=== PATIENT | female | born 1970 | race Two or more races ===

== ENCOUNTER 2019-03-11 10:51 | Emergency (ER) | payer OTHER ==
[~2019-03-11] VITALS: Ht 157.5 cm; Wt 78.0 kg
[~2019-03-11 10:51] MED LIST: BISA5ECT2 PO; FERR-13 PO; GABA300C PO; HYDR25CA1 PO; LITH8SOL PO; LORA-476 PO; MIRABULK PO; OLAN10TA PO
[2019-03-11 10:55] VITALS: BP 145/90
--- NOTE | 2019-03-11 11:26 | NUR ---
PT COMPLAINT UNCLEAR, PT HAVING RAPID THOUGHTS AND DISORGANIZED SPEECH. 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 PT UNABLE TO REPORT ACCURATE SYMPTOMS AND HISTORY. HX: SCHIZOAFFECTIVE DISORDER RX: UNKNOWN
--- NOTE | 2019-03-11 12:36 | NUR ---
EKG performed at bedside by CHASIDY Domínguez. Physician given copy of EKG for review.
--- NOTE | 2019-03-11 12:43 | NUR ---
X-Ray at bedside.
--- NOTE | 2019-03-11 12:46 | NUR ---
LAB AT BEDSIDE.
[2019-03-11 13:02] LABS: BASOPHILS # (AUTO) 0.1 K/uL (0.00-0.22); BASOPHILS % (AUTO) 0.8 % (0.0-2.0); EOSINOPHILS # (AUTO) 0.3 K/uL (0-0.4); EOSINOPHILS % (AUTO) 2.5 % (0.0-4.0); HEMATOCRIT 38.3 % (36-48); HEMOGLOBIN 12.6 g/dL (12.0-16.0); LYMPHOCYTES # (AUTO) 3.1 K/uL (2.5-16.5); LYMPHOCYTES % (AUTO) 30.5 % (20.5-51.1); MEAN CORPUSCULAR HEMOGLOBIN 27 pg (27-31); MEAN CORPUSCULAR HGB CONC 33 g/dL (33-37); MEAN CORPUSCULAR VOLUME 83.1 fL (80-94); MONOCYTES # (AUTO) 0.7 K/uL (0.8-1.0); MONOCYTES % (AUTO) 7.4 % (1.7-9.3); NEUTROPHILS # (AUTO) 5.9 K/uL (1.8-7.7); NEUTROPHILS % (AUTO) 58.8 % (42.2-75.2); PLATELET COUNT (AUTO) 314 K/uL (140-450); RED BLOOD CELL COUNT(AUTO) 4.61 MIL/uL (4.20-5.40); RED CELL DISTRIBUTION WIDTH 14.6 % (11.6-13.7); WHITE BLOOD COUNT (AUTO) 10.1 K/uL (4.8-10.8)
[2019-03-11 13:05] LABS: APPEARANCE,URINE CLEAR (CLEAR); BILIRUBIN,URINE NEGATIVE (NEGATIVE); BLOOD, URINE NEGATIVE (NEGATIVE); COLOR,URINE YELLOW (YELLOW); LEUKOCYTE ESTERASE ,URINE NEGATIVE (NEGATIVE); NITRITE, URINE NEGATIVE (NEGATIVE); UGLUCOSE NEGATIVE (NEGATIVE)
[2019-03-11 13:08] LABS: ANION GAP 13.1 (8-16); CARBON DIOXIDE 24.5 mmol/L (21-32); CREATININE 0.7 mg/dL (0.6-1.3); POTASSIUM 3.6 mmol/L (3.5-5.1)
[2019-03-11 13:14] LABS: ALBUMIN 3.3 g/dL (3.4-5.0); TOTAL BILIRUBIN 0.2 mg/dL (0.0-1.0)
[2019-03-11 13:18] LABS: RBC,URINE 0-5 /HPF (0-5); WBC,URINE 0-5 /HPF (0-5)
--- NOTE | 2019-03-11 15:05 | NUR ---
Dr. Perez at bedside.
--- NOTE | 2019-03-11 15:12 | NUR ---
tele psych consult ordered. spoked with Dr. Helm;provided information about pt's medical condition.
--- NOTE | 2019-03-11 15:45 | NUR ---
Evelyne fitch in ED - 03/11/19 at 1601 by MED PT VERBALIZED GALDINO SANCHEZ. 1 TO 1 SITTER IS AT BEDSIDE.
--- NOTE | 2019-03-11 15:45 | NUR ---
PT VERBALIZED HAVING SUISIDAL IDEATION AND HARM OTHER PEOPLE. 1 TO 1 SITTER IS AT BEDSIDE.
--- NOTE | 2019-03-11 15:55 | NUR ---
PT MOVED TO BED 5; REPORT GIVEN TO REINALDO MEJIA. TRANSFER OF CARE AT THIS TIME. PT IN STABLE CONDITION.
--- NOTE | 2019-03-11 15:55 | NUR ---
RECEIVED REPORT FROM REINALDO SCHWARZ.
--- NOTE | 2019-03-11 17:02 | NUR ---
[place] [facility] IS AT BEDSIDE. PT IS ON 5150 HOLD. 1 TO 1 SITTER IS AT BEDSIDE.
--- NOTE | 2019-03-11 17:27 | NUR ---
PRE ER MD DR MIR PT IS MEDICALLY CLEAR. OK FOR PLACEMENT.
[2019-03-11 17:31] LABS: BARBITURATE, URINE NEG. ng/ml (NEG <=200); BENZODIAZEPINE, URINE NEG. ng/mL (NEG <=200); CANNABINOID, URINE NEG. ng/mL (NEG <=50); COCAINE, URINE NEG. ng/mL (NEG <=300); OPIATE, URINE NEG. ng/mL (NEG <=2000); PHENCYCLIDINE SCREEN,URINE NEG. ng/mL (NEG <=25)
[2019-03-11 17:32] LABS: ACETAMINOPHEN < 0.5 ug/ml (10-30); SALICYLATE 5.8 mg/dL (2.8-20.0)
--- NOTE | 2019-03-11 17:54 | NUR ---
Received packet for placement. S/W Emilie from ER and states patient us medically cleared. [facility] s/w Shantell no beds but packet fax for wait list [facility] s/w Abebe no beds but packet fax for wait list [facility] s/w Flores no beds at this time [facility] s/w Nona only adolescent beds available [facility] s/w Monie, packet fax for review [facility] s/w Harriet, packet fax for possible review [facility] s/w Az no beds at this time
--- NOTE | 2019-03-11 18:34 | NUR ---
PT IS SLEEPING IN BED AT THIS TIME. 1 TO 1 SITTER IS AT BEDSIDE.
--- NOTE | 2019-03-11 20:00 | NUR ---
PT IS EATING AT THIS TIME.
--- NOTE | 2019-03-11 20:20 | NUR ---
CAMI FROM [facility] CALLED AND AKED PT'S VITALS, TEST RESULTS, TREATMENT, PLAN. REPORT GIVEN TO CAMI VIA PHONE.
[2019-03-11] MEDS ORDERED: ACETAMINOPHEN EXTRA STRENGTH 500 MG TAB PO ONE (20:30)
[2019-03-11] MEDS ORDERED: KETOROLAC 30 MG/ML VIAL IM ONE (21:05)
--- NOTE | 2019-03-11 21:15 | NUR ---
REPORT GIVEN TO THE RN OF [facility] VIA PHONE, PHONE NUMBER: [phone]. DR. PATEL.
[2019-03-11 21:31] VITALS: BP 129/81
--- NOTE | 2019-03-11 21:36 | NUR ---
Patient to be transferred to [facility]. Is being transferred due to SUICIAL IDEATION. Receiving facility has accepting physician and available space. ER physician has signed transfer form. Patient or responsible democrat has agreed to transfer and signed form. Patient belongings inventoried and will be sent with patient. Copy of nursing notes, lab reports, EKG, Physicians Orders and X-rays to be sent with patient. Report called to RN OF DR. PATEL, [phone] at receiving facility. [facility] ambulance service has been called for transfer. ETA is 22:15.
[2019-03-12 08:19] LABS: HEPATITIS A ANTIBODY IGM Negative (Negative); HEPATITIS B CORE AB TOTAL Negative (Negative); HEPATITIS B SURFACE ANTIBODY Non Reactive (.); HEPATITIS B SURFACE ANTIGEN Negative (Negative)
== END 2019-03-11 21:36 ==
LOC: MED 10:51
DX: R45.851 Suicidal ideations (principal); R60.9 Edema, unspecified; F29 Unspecified psychosis not due to a substance or known physiological condition; F17.210 Nicotine dependence, cigarettes, uncomplicated; Z71.6 Tobacco abuse counseling; Z79.899 Other long term (current) drug therapy
CPT/HCPCS: 36415; 71045; 80053; 80305; 81001; 81025; 82140; 83690; 83880; 84484; 85025; 85651; 86704; 86706; 86708; 86709; 86803; 87340; 93005; 96372; 99285; G0480; G0482; J1885; Q0092

== ENCOUNTER 2019-04-05 22:02 | Emergency (ER) | payer OTHER ==
[~2019-04-05] VITALS: Ht 157.5 cm; Wt 74.4 kg
[2019-04-05 22:20] VITALS: BP 117/58
--- NOTE | 2019-04-05 23:09 | NUR ---
PT AMBULATED TO BED #6
--- NOTE | 2019-04-05 23:40 | NUR ---
PT CAME TO ER C/O OF DIZZINESS, VERTIGO, AND UNSTEADY GAIT X 1 YEAR. PT ABLE TO AMBULATE WITHOUT ASSISTANCE. DOES NOT HAVE ANY CHANGES IN VISION. PT DENIES ANY PAIN. NO N/V/D. MED HX: ANEMIA. SAFETY MEASURES IN PLACE. WAITING FOR ERMD TO EVALUATE PT.
--- NOTE | 2019-04-06 00:34 | NUR ---
PT RESTING IN BED COMFORTABLY. VSS. WILL CONTINUE TO MONITOR.
--- NOTE | 2019-04-06 02:15 | NUR ---
PT C/O OF SHARP BILATERAL LEG PAIN. PAIN LEVEL 8/10. ERMD MADE AWARE.
[2019-04-06] MEDS ORDERED: KETOROLAC 60 MG/2 ML VIAL IM ONE (02:20)
[2019-04-06] MEDS ORDERED: KETOROLAC 30 MG/ML VIAL IM ONE ×2 (02:25)
[2019-04-06 02:30] VITALS: BP 117/58
--- NOTE | 2019-04-06 02:31 | NUR ---
Patient discharged with v/s stable. Written and verbal after care instructions given and explained regarding vertigo. Patient alert, oriented and verbalized understanding of instructions. Ambulatory with steady gait using cane. All questions addressed prior to discharge. ID band removed. Patient advised to follow up with PMD. Rx of meclizine was given. Patient educated on indication of medication including possible reaction and side effects. Opportunity to ask questions provided and answered.
[2019-04-06] MEDS ORDERED: KETOROLAC 30 MG/ML VIAL ONE (02:36)
== END 2019-04-06 02:30 | disposition home or self-care (01) ==
LOC: MED 22:02
DX: R19.7 Diarrhea, unspecified (principal); F17.200 Nicotine dependence, unspecified, uncomplicated; Z98.890 Other specified postprocedural states; Z79.899 Other long term (current) drug therapy; Z88.8 Allergy status to other drugs, medicaments and biological substances
CPT/HCPCS: 81002; 81025; 96372; 99283; J1885

== ENCOUNTER 2019-05-03 16:01 | Emergency (ER) | payer OTHER ==
[~2019-05-03] VITALS: Ht 157.5 cm; Wt 72.6 kg
--- NOTE | 2019-05-03 16:11 | NUR ---
PT TAKEN TO BED 2.
[2019-05-03 16:16] VITALS: BP 157/92
--- NOTE | 2019-05-03 16:20 | NUR ---
BIB SELF W/ REQUEST FOR SMOKING CESSATION, TEST, TO CHECK HER LUNGS AND A REFERRAL TO A DOCTOR CLOSER TO HOME IN [place]. PER PT WAS "SEEN AT [facility]." ER TO EVALUATE PT. HX; GERD, "PSYCH"
--- NOTE | 2019-05-03 17:00 | NUR ---
DR MOISE AT BEDSIDE FOR PT EVALAUTION
--- NOTE | 2019-05-03 17:01 | NUR ---
PT GIVEN WATER. PT TOLERATED WELL.
--- NOTE | 2019-05-03 17:18 | NUR ---
PT UNABLE TO GIVE URINE SPECIMEN AT THIS TIME. PT REQUESTED FOR MORE WATER.
--- NOTE | 2019-05-03 17:19 | NUR ---
PT GIVEN 2 CUPS OF WATER. PT TOLERATED WELL.
--- NOTE | 2019-05-03 17:40 | NUR ---
PT AMBULATED TO THE BATHROOM WITH STEADY GAIT.
--- NOTE | 2019-05-03 17:45 | NUR ---
URINE SPECIMEN OBTAINED.
--- NOTE | 2019-05-03 18:54 | NUR ---
Patient discharged with v/s stable. Written and verbal after care instructions given and explained. Patient alert, oriented and verbalized understanding of instructions. Ambulatory with steady gait. All questions addressed prior to discharge. ID band removed. Patient advised to follow up with PMD. Rx of Pepcid 40mg, Meclizine 12.5mg and Acetaminophen 50mg given. Patient educated on indication of medication including possible reaction and side effects. Opportunity to ask questions provided and answered.
[2019-05-03 18:55] VITALS: BP 126/72
== END 2019-05-03 18:54 | disposition home or self-care (01) ==
LOC: MED 16:01
DX: R42 Dizziness and giddiness (principal); G89.29 Other chronic pain; M79.606 Pain in leg, unspecified; K21.9 Gastro-esophageal reflux disease without esophagitis; F17.200 Nicotine dependence, unspecified, uncomplicated; Z86.59 Personal history of other mental and behavioral disorders; Z98.890 Other specified postprocedural states; Z79.899 Other long term (current) drug therapy
CPT/HCPCS: 81025; 99283

== ENCOUNTER 2019-07-15 06:49 | Inpatient (IN) | payer OTHER ==
[~2019-07-15] VITALS: Ht 162.6 cm; Wt 61.2 kg
--- NOTE | 2019-07-15 06:49 | NUR ---
PT [facility]. TAKEN TO BED 6
--- NOTE | 2019-07-15 06:59 | NUR ---
PT BIBA TO ER WITH NON SPECIFIC COMPLAINTS. EMS ORIGINALLY RESPONDED TO PT WITH C/O BUG BITE. PT THEN STATED THAT SHE WAS KICKED OUT [facility] [place] DUE TO BEHAVIOR AND WAS TIRED OF SLEEPING ON THE FLOOR. PT STATED THAT IF EMS DID NOT TAKE HER TO THE HOSPTIAL, SHE WAS GOING TO RUN INTO TRAFFIC. PT MENTAL HEALTH HX IS BIPOLAR, DEPRESSION, AND SCHIZOPHRENIA. PT IS ALERT AND KNOWS WHERE SHE IS. SHE HAS A FLIGHT OF IDEAS. PT STATED THAT SHE IS WITH MULTIPLE BABIES AND WANTS TO GET CHECKED OUT BECAUSE HER ABDOMEN DOES NOT FEEL THE SAME. BUT STATED LMP WAS TWO TO THREE YEARS AGO.[place] PD WAS NOT ON SCENE PER EMS. IN ER, PT DOES NOT KNOW WHERE HER BUG BITE IS ANYMORE. PT STATED SHE WANTS A BED TO SLEEP IN AND REQUESTS TO SEE A PSYCHIATRIST TO PLACE HER IN A [facility]UN WELDER FACILITY. SHE ALSO STATED SHE DOES NOT WANT FAMILY TO VISIT HER AND HER BABIES. PT HAS SOME BACK PAIN DUE TO SLEEPING ON THE FLOOR. PT REFUSED TO STATE PAIN LEVEL. PER FLACC SCALE, PT IS 0/10 AT THIS TIME. ERMD MADE AWARE OF STATUS. SAFETY MEASURES IN PLACE.WILL CONTINUE TO MONITOR.
[2019-07-15 07:01] VITALS: BP 131/74
--- NOTE | 2019-07-15 07:02 | NUR ---
SECURITY PICKED UP PT PERSONAL BELONGINGS.
--- NOTE | 2019-07-15 07:03 | NUR ---
PT REFUSED TO USE THE RESTROOM TO GIVE URINE SPECIMEN
--- NOTE | 2019-07-15 07:21 | NUR ---
Dr. Alonso examining patient.
--- NOTE | 2019-07-15 07:31 | NUR ---
PATIENT RESTING IN BED, MUMBLING NAMES. RESPIRATIONS EVEN AND UNLABORED. FLACC 0.
--- NOTE | 2019-07-15 07:35 | NUR ---
WHEN PATIENT ASKED TO PROVIDE URINE SAMPLE, SHE STATES "I DON'T REALLY HAVE TO GO NOW, BUT I'LL TRY". PT CLOSED HER EYES AND WENT BACK TO SLEEP.
--- NOTE | 2019-07-15 07:58 | NUR ---
RESIDENCY DIRECTOR AT BEDSIDE.
--- NOTE | 2019-07-15 08:01 | NUR ---
CXR AT BEDSIDE.
[2019-07-15 08:07] LABS: BASOPHILS % (AUTO) 0.5 % (0.0-2.0); EOSINOPHILS # (AUTO) 0.2 K/uL (0-0.4); EOSINOPHILS % (AUTO) 3.2 % (0.0-4.0); HEMATOCRIT 44.9 % (36-48); HEMOGLOBIN 14.5 g/dL (12.0-16.0); LYMPHOCYTES # (AUTO) 2.5 K/uL (2.5-16.5); LYMPHOCYTES % (AUTO) 35.5 % (20.5-51.1); MEAN CORPUSCULAR HEMOGLOBIN 28 pg (27-31); MEAN CORPUSCULAR HGB CONC 32 g/dL (33-37); MONOCYTES # (AUTO) 0.5 K/uL (0.8-1.0); MONOCYTES % (AUTO) 7.2 % (1.7-9.3); NEUTROPHILS # (AUTO) 3.7 K/uL (1.8-7.7); NEUTROPHILS % (AUTO) 53.6 % (42.2-75.2); PLATELET COUNT (AUTO) 317 K/uL (140-450); RED BLOOD CELL COUNT(AUTO) 5.29 MIL/uL (4.20-5.40); WHITE BLOOD COUNT (AUTO) 6.9 K/uL (4.8-10.8)
--- NOTE | 2019-07-15 08:10 | NUR ---
EMT AT BEDSIDE FOR EKG.
--- NOTE | 2019-07-15 09:39 | NUR ---
PT SLEEPING IN BED, RESPIRATIONS EVEN AND UNLABORED, NAD.
--- NOTE | 2019-07-15 09:42 | NUR ---
LAB STATES UDS AND CMP RESULTS ARE PROCESSING NOW.
[2019-07-15 10:00] LABS: ANION GAP 16.8 (8-16); CARBON DIOXIDE 25.3 mmol/L (21-32); POTASSIUM 4.1 mmol/L (3.5-5.1)
[2019-07-15 10:01] LABS: CREATININE 0.7 mg/dL (0.6-1.3)
[2019-07-15 10:06] LABS: ALBUMIN 4.2 g/dL (3.4-5.0); TOTAL BILIRUBIN 0.6 mg/dL (0.0-1.0)
[2019-07-15 10:14] LABS: BARBITURATE, URINE NEG. ng/ml (NEG <=200); BENZODIAZEPINE, URINE NEG. ng/mL (NEG <=200); CANNABINOID, URINE NEG. ng/mL (NEG <=50); COCAINE, URINE NEG. ng/mL (NEG <=300); OPIATE, URINE NEG. ng/mL (NEG <=2000); PHENCYCLIDINE SCREEN,URINE NEG. ng/mL (NEG <=25)
[2019-07-15 10:43] LABS: FREE T4 (FREE THYROXINE) 0.75 ng/dL (0.76-1.46); THYROID STIMULATING HORMONE 11.28 uIU/mL (0.34-3.74)
--- NOTE | 2019-07-15 11:07 | NUR ---
TELEPSYCH SPEAKING WITH PATIENT.
--- NOTE | 2019-07-15 11:52 | NUR ---
PER TELEPSYCH MD, RECOMMEND PT BE PLACED ON 5150 FOR GRAVELY DISABLED AND DANGER TO SELF.
--- NOTE | 2019-07-15 12:33 | NUR ---
Pt is medically clear by Dr. Alonso and may be transferred to another facility when one becomes available.
--- NOTE | 2019-07-15 12:40 | NUR ---
Pt placed on 5150 hold by Luzmaria Artis RN for danger to self.
--- NOTE | 2019-07-15 13:01 | NUR ---
PT RESTING IN BED AT THIS TIME. STABLE. WILL CONTINUE TO MONITOR.
--- NOTE | 2019-07-15 13:05 | NUR ---
[facility] received pt packet via fax. Will begin looking for psych placement. Will contact with any placement updates.
--- NOTE | 2019-07-15 13:09 | NUR ---
Contacted the following facilities regarding potential placement: [facility]: s/w Ana Rosa, states no beds available at this time. Packet faxed for waitlist. [facility]: s/w Kenyetta, states no open beds. Packet faxed for waitlist. [facility]: s/w Ann-Marie, no beds available, packet faxed for waitlist. [facility]: s/w Justyna, no beds available. [facility]: s/w Samara, no beds available. [facility]:Unable to reach anyone, rang continuously. Faxed. [facility]: No answer, faxed packet.
--- NOTE | 2019-07-15 13:39 | NUR ---
PATIENT MUMBLING ABOUT MONITORING IN BED. NAD. RESPIRATIONS EVEN AND UNLABORED.
--- NOTE | 2019-07-15 17:42 | NUR ---
CALLED [facility] FOR DINNER TRAY.
--- NOTE | 2019-07-15 19:19 | NUR ---
REPORT TO REINALDO SCOTT. PT IN STABLE CONDITION. TX OF CARE AT THIS TIME.
--- NOTE | 2019-07-15 19:39 | NUR ---
PATIENT IN NO DISTRESS AT THIS TIME. WILL CONTINUE TO MONITOR.
--- NOTE | 2019-07-15 19:54 | NUR ---
Change of shift report given, will continue to help with facilitating placement
--- NOTE | 2019-07-15 20:59 | NUR ---
PATIENT IS CALM AND COOPERATIVE AND QUIETLY LYING IN BED.
[2019-07-15] MEDS ORDERED: ONDANSETRON 4 MG/2 ML VIAL IVP PRN (21:40)
--- NOTE | 2019-07-15 22:35 | NUR ---
Patient will be admitted to care of . Admited to Med/Surg. Will go to room 110 B. Belongings list completed. Report to REINALDO WIN.
[2019-07-15 22:45] VITALS: BP 128/77
--- NOTE | 2019-07-15 22:45 | NUR ---
Admitted from ER TO MED SURGICAL UNIT VIA W/C , with chief complaint of SUICIDAL IDEATION. AWAKE, A/OX4, 49 y/o ,Female, Cooperative, KEEPS ON TALKING TO SELF, LAUGHING, SOMETIMES SINGING BUT ABLE TO ANSWERS SOME QUESTIONS, SOME QUESTIONS PATIENT JUST REPEAT WHAT WAS ASKED TO HER. HEAD TO TOE ASSESSMENT DONE WITH CHARGE NURSE MARIA EUGENIA, SKIN INTACT. DENIES PAIN 0/10. oriented to call light, bed, phone,television, bathroom, smoking policy, visiting hours, procedures, ID bracelet on. Belongings list checked.
--- NOTE | 2019-07-15 23:43 | NUR ---
Facilities received intake paperwork for possible placement. No Beds are available through this evening however dishcarges are apparent in the morning. Spoke to.....Monie Sanz/ Marian Avilez/ Rosi Prather/ Pastor Giang, [facility]/ Elza Anton
--- NOTE | 2019-07-15 23:45 | NUR ---
AMBULATED TO THE DOORWAY, WANTS TO WALK AROUND BUT INSTRUCTED TO RETURN TO BED. UNDERWEAR GIVEN AND ANOTHER GOWN REQUESTED, WENT TO BR AND BACK TO BED.
--- NOTE | 2019-07-16 01:00 | NUR ---
SLEEPING COMFORTABLY IN BED.
--- NOTE | 2019-07-16 03:00 | NUR ---
AWAKE IN BED, TALKING TO SELF.
--- NOTE | 2019-07-16 04:00 | NUR ---
REQUESTING FOR COUGH MEDICATION, WITH OCCASIONAL UNPRODUCTIVE COUGH, GERRY BENDER.
--- NOTE | 2019-07-16 07:00 | NUR ---
CONDITION REMAIN STABLE. WILL ENDORSE TO AM NURSE FOR CONTINUITY OF CARE.
--- NOTE | 2019-07-16 07:20 | NUR ---
RECEIVED BEDSIDE REPORT FROM SKI TOP TRIMMER NURSE FOR CONTINUITY OF CARE. PATIENT IS AAOX2 TO NAME AND PLACE. PATIENT IS AWAKE AND RESTING ON BED AT THIS TIME. PATIENT IS TALKING TO HERSELF. WHEN ASK PATIENT WHO IS SHE TALKING TO, PATIENT REPLIES "MYSELF." DENIED HEARING VOICE AND ANY SUICIDAL THOUGHT. RESPIRATION EVEN AND UNLABORED ON RA. NO SIGNS OF DISTRESS NOTED. PATIENT REFUSED IV ACCESS. EDUCATION PROVIDED AND PATIENT SAID "NO, I DON'T WANT IT." PATIENT IS CONTINENT AND AMBULATE. SKIN INTACT AND CLEAN. DISCUSSED PLAN OF CARE WITH PATIENT AND PATIENT VERBALIZED OK. SAFETY MEASURES IN PLACE. BED IN LOW POSITION AND 1:1 SITTER BY BEDSIDE.
[2019-07-16 08:00] VITALS: BP 147/85
--- NOTE | 2019-07-16 09:44 | NUR ---
PATIENT AWAKE AND SITTING UP ON EDGE OF BED. MOOD CALM AND COOPERATIVE. DENIED HEARING VOICES AND SUICIDAL THOUGHT. NO SIGNS OF DISTRESS NOTED. SAFETY MEASURES IN PLACE. BED IN LOW POSITION AND1:1 SITTER BY BEDSIDE.
--- NOTE | 2019-07-16 10:00 | NUR ---
SPOKE WITH DR. VELA OVER THE PHONE REGARDING THE CONSULT. PER DR. VELA, HE WILL COME TO SEE PT LATER IN THE AFTERNOON.
--- NOTE | 2019-07-16 11:11 | NUR ---
PATIENT HAS BEEN SCREENED AND CATEGORIZED LOW NUTRITION RISK. PATIENT WILL BE SEEN WITHIN 7 DAYS OF ADMISSION. 07/23/[address]
--- NOTE | 2019-07-16 11:45 | NUR ---
PATIENT AWAKE AND SINGING IN HER MOOD. MOOD CALM AND COOPERATIVE. DENIED HEARING VOICES AND SUICIDAL THOUGHT. NO SIGNS OF DISTRESS NOTED. SAFETY MEASURES IN PLACE. BED IN LOW POSITION AND1:1 SITTER BY BEDSIDE.
--- NOTE | 2019-07-16 13:25 | NUR ---
PATIENT AWAKE AND RESTING ON BED AT THIS TIME. MOOD COOPERATIVE AND CALM. DENIED HEARING VOICES AND SUICIDAL IDEATION. NO SIGNS OF DISTRESS NOTED. SAFETY MEASURES IN PLACE. BED IN LOW POSITION AND 1:1 SITTER BY BEDSIDE.
[2019-07-16 16:00] VITALS: BP 138/70
--- NOTE | 2019-07-16 17:45 | NUR ---
PATIENT AWAKE AND SITTING QUIETLY IN HER ROOM. NO SIGNS OF DISTRESS NOTED. SAFETY MEASURES IN PLACE. BED IN LOW POSITION AND 1:1 SITTER BY BEDSIDE.
--- NOTE | 2019-07-16 18:15 | NUR ---
PATIENT REQUESTED TO TAKE A SHOWER. DETONATOR ASSEMBLER TOOK PATIENT TO SHOWER. SITTER IS BY PATIENT'S SIDE. NO SIGNS OF DISTRESS NOTED.
--- NOTE | 2019-07-16 18:40 | NUR ---
PATIENT REFUSED TO COME OUT FROM SHOWER AND SAID "I AM WAITING FOR 3 DAYS FOR THIS SHOWER. I WILL TAKE HOURS LONG." PATIENT SPLASHED WATER WHILE I WAS TALKING TO HER. PATIENT BLOCKED THE WATER DRAINAGE WITH TOWEL, AND ASKED PATIENT NOT TO DO SO, WATER FLOODED THE HALLWAY. CALLED SECURITY AND GRANITE SANDBLASTER APPRENTICE. SECURITY AND GRANITE SANDBLASTER APPRENTICE ATTENDED TO SHOWER ROOM AND TALKED TO PATIENT.
--- NOTE | 2019-07-16 19:05 | NUR ---
ABLE TO CONVINCED PATIENT TO COME OUT FROM SHOWER AND WHEELCHAIRED PATIENT BACK TO HER ROOM. MAINTENANCE CUSTODIAN ASSISTED PATIENT TO PUT ON GOWN. 1:1 SITTER BY PATIENT'S SIDE.
--- NOTE | 2019-07-16 19:18 | NUR ---
Change of shift report given, will continue to help facilitate placement
--- NOTE | 2019-07-16 19:27 | NUR ---
ENDORSED PATIENT AT BEDSIDE TO FAST FOOD TEAM MEMBER NURSE FOR CONTINUITY OF CARE. PATIENT IS WALKING INSIDE HER ROOM. NO SIGNS OF DISTRESS NOTED. SAFETY MEASURES IN PLACE. BED IN LOW POSITION AND 1:1 SITTER BY BEDSIDE.
--- NOTE | 2019-07-16 19:28 | NUR ---
RECD. SITTING ON BED, AWAKE, A/OX4. RESPIRATION EVEN AND UNLABORED. WHEN INQUIRED IF SHE IS HEARING VOICES TELLING HER TO HURT SELF, STATED NOT AT THIS TIME. GOT TWO STYRO FOAM TRAYS AND STARTING TO FAN HERSELF AND USED IT CONTINUOUSLY BOTH IN UP AND DOWN MOTION. NO APPEARANCE OF PAIN NOTED 0/10.
[2019-07-16] MEDS: OLANZapine 5 MG ODT PO SCH (21:00)
[2019-07-16] MEDS ORDERED: OLANZapine 5 MG ODT PO ONE (21:00)
--- NOTE | 2019-07-16 21:15 | NUR ---
STOPPED FANNING WITH THE 2 TRAYS, WENT TO BED AND SLEEP.
[2019-07-16] MEDS ORDERED: OLANZapine 5 MG TAB ONE (21:53)
--- NOTE | 2019-07-16 22:03 | NUR ---
RESTING IN BED, STILL AWAKE. REFUSED TO TAKE THE ZYPREXA.
--- NOTE | 2019-07-16 23:00 | NUR ---
OCCASIONALLY TALKING TO SELF.
[2019-07-17] VITALS: BP 113/62
--- NOTE | 2019-07-17 | NUR ---
SLEEPING COMFORTABLY IN BED.
--- NOTE | 2019-07-17 02:10 | NUR ---
Continuing to monitor facilities for placement, no beds available will continue to keep facility informed of any progress
--- NOTE | 2019-07-17 04:00 | NUR ---
STILL SLEEPING COMFORTABLY IN BED, NO DISTRESS NOTED.
--- NOTE | 2019-07-17 06:29 | NUR ---
NO AGITATION NOTED DURING SHIFT BUT THERE ARE EPISODES OF BEING WEIRD AND ACTING DIFFERENTLY FROM NORMAL
--- NOTE | 2019-07-17 07:25 | NUR ---
RECEIVED BEDSIDE REPORT FROM GENETICIST NURSE FOR CONTINUITY OF CARE. PATIENT IS AAOX3 TO NAME, DATE AND PLACE. PATIENT IS AWAKE AND RESTING ON BED AT THIS TIME. PATIENT'S MOOD IS CALM AND COOPERATIVE AT THIS TIME.DENIED HEARING VOICE AND ANY SUICIDAL THOUGHT. RESPIRATION EVEN AND UNLABORED ON RA. NO SIGNS OF DISTRESS NOTED. PATIENT REFUSED IV ACCESS. EDUCATION PROVIDED AND PATIENT INSISTED NOT WANTING TO START IV. PATIENT IS CONTINENT AND AMBULATE. SKIN INTACT AND CLEAN. DISCUSSED PLAN OF CARE WITH PATIENT AND PATIENT VERBALIZED OK. SAFETY MEASURES IN PLACE. BED IN LOW POSITION AND 1:1 SITTER BY BEDSIDE.
--- NOTE | 2019-07-17 07:46 | NUR ---
Received report from rn shift mgr. [facility] still looking for placement.
[2019-07-17 08:00] VITALS: BP 109/79
[2019-07-17] MEDS: OLANZapine 5 MG ODT PO SCH ×2 (09:56→22:53)
--- NOTE | 2019-07-17 09:56 | NUR ---
ADMINISTERED MEDS PER MD ORDER, MED EDUCATION PROVIDED TO PATIENT AND PATIENT VERBALIZED UNDERSTANDING. PATIENT AWAKE AND DRAWING ON THE ART BOOK . DENIED HEARING VOICE AND SUICIDAL IDEATION. RESPIRATION EVEN AND UNLABORED ON RA. NO SIGNS OF DISTRESS NOTED. SAFETY MEASURES IN PLACE. BED IN LOW POSITION AND 1:1 SITTER BY BEDSIDE.
--- NOTE | 2019-07-17 10:02 | NUR ---
Benefit Specialist Note: Per Yuliana from [facility] , they do not have referral. I faxed referral to [facility]. Per Yuliana from [facility] , they do not have referral. They are anticipating having beds available after 10:30am today. I faxed referral. Per Dorita from [facility] , they do not have any beds available at this time. She stated referral has not been reviewed because they do not have beds available at this time.
--- NOTE | 2019-07-17 11:45 | NUR ---
PATIENT IS RESTING ON BED AT THIS TIME. AROUDSABLE TO VOICE. DENIED SUICIDAL IDEATION AND HEARING VOICE. NO SIGNS OF DISTRSS NOTED. SAFETY MEASURES IN PLACE. BED IN LOW POSITION AND 1:1 SITTER BY BEDSIDE.
--- NOTE | 2019-07-17 13:13 | NUR ---
Called the Following facilities: [facility], s/w Omar. No beds, possible discharges later today. [facility], s/w Dinesh. No beds, completely full today. [facility], s/w Randolph Rose. No beds today. [facility], s/w Kenton. No beds at this time. [facility], No answer. Called 2x. Will follow up later.
--- NOTE | 2019-07-17 13:40 | NUR ---
PATIENT IS AWAKE AND SITTING UP ON BED QUIETLY AT THIS TIME. AROUDSABLE TO VOICE. DENIED SUICIDAL IDEATION AND HEARING VOICE. NO SIGNS OF DISTRESS NOTED. SAFETY MEASURES IN PLACE. BED IN LOW POSITION AND 1:1 SITTER BY BEDSIDE.
--- NOTE | 2019-07-17 15:45 | NUR ---
PATIENT AWAKE AND RESTING ON BED AT THIS TIME. NO SIGNS OF DISTRESS NOTED. SAFETY MEASURES IN PLACE. BED IN LOW POSITION AND 1:1 SITTER BY BEDSIDE.
[2019-07-17 16:00] VITALS: BP 125/71
--- NOTE | 2019-07-17 17:25 | NUR ---
PATIENT IS AWAKE AND RESTING ON BED. NO SIGNS OF DISTRESS NOTED. SAFETY MEASURES IN PLACE. BED IN LOW POSITION AND 1:1 SITTER BY BEDSIDE.
--- NOTE | 2019-07-17 19:18 | NUR ---
RECIEVED PT AWAKE , ALERT , BUT POOR HISTORIAN , WITH HIGH VOICE INTONATION , NID , V/S WNL . NO IV JOSH , ON 515 HOLD - ON 1:1 SITTER - SUICIDAL PRECAUTION PROTOCOL . PLAN OF CARE DISCUSSED BUT LESS MOTIVATION AND POOR CONCENTRATION ON THE TOPIC DISCUSSION . WILL CONT. TO MONITOR . FOR CLOSELY WATCH - TENDS TO BE AGRESSIVE .
--- NOTE | 2019-07-17 19:18 | NUR ---
ENDORSED PATIENT AT BEDSIDE TO ENGRAVER SIGNATURE NURSE FOR CONTINUITY OF CARE, PATIENT IS RESTING ON BED. NO SIGNS OF DISTRESS NOTED. PATIENT IS IN STABLE CONDITION. SAFETY MEASURES IN PLACE. BED IN LOW POSITION AND 1:1 SITTER BY BEDSIDE.
[2019-07-17 20:00] VITALS: BP 110/70
--- NOTE | 2019-07-17 21:26 | NUR ---
Change of shift report was given earlier. Continuing to monitor notes and facilites for bed placement however there still are no updates on placement. Will continue to keep facility informed of any updates.
[2019-07-17] MEDS ORDERED: OLANZapine 5 MG TAB ONE (21:49)
--- NOTE | 2019-07-17 22:00 | NUR ---
MADE ROUNDS , RESTING ON BED COMFORTABLY . WILL CONT/ TO MONITOR . ON 1:1 SITTER.
--- NOTE | 2019-07-18 | NUR ---
MADE ROUNDS . NO SIGNS OF DISTRESS NOTED AT THIS TIME . WILL CONT. TO MONITOR . ON 1:1 SITTER.
--- NOTE | 2019-07-18 02:00 | NUR ---
SLEEPING - ON 1 :1 SITTER.
--- NOTE | 2019-07-18 04:40 | NUR ---
PT WOKE UP - REQUESTING TO HAVE A SHOWER AT THIS TIME . INFORMED HER THIS TIME IS TIME FOR REST AND SLEEP . SHE MAY HAVE A SHOWER AFTER BREAKFAST . PT. AGREED.
--- NOTE | 2019-07-18 05:45 | NUR ---
AWAKE , ON HIGH VOICE INTONATION , MANIPULATING THE PEOPLE SURROUNDS HER , DEMANDING SO MANY THINGS , SUCH CALLING THE FAMILY TO VISIT HER , CALLING A POLICE . TALKING ABOUT THE PAST , SHE KEEPS SAYING SHE WANTS TO CHANGE HER FAMILY . WHY SHE CAN'T STAY WITH HER FAMILY , HER BROTHER SPENDING TOO MUCH MONEY , HER MOTHER CALLED THE POLICE , NO ONE KNEW WHAT HAPPENNED TO HER .SHE SAID I DON'T WANT TO MAKE A FRIEND WITH PAID PEOPLE . SHE SAID I DON'T WANT TO BE FRIENDLY WITH THE STAFF HERE BECAUSE THET ARE PAID PEOPLE - THEY ARE JUST DOING THIER JOB FOR ME BECAUSE THEY ARE PAID.-THERE IS A SIGNS OF JUMPING IDEAS OF IDEAS AFTER OF WHAT SHE HAVE SAID THEN SUDDENLY SHE SHIFTED TO TOPIC TO SMOKING AND ABOUT TALKING THE J2EE ENGINEER.- FOR CLOSELY WATCH - ON 1:1 SITTER.
--- NOTE | 2019-07-18 07:24 | NUR ---
RECEIVED REPORT FROM GRAIN FARMER RN FOR CONTINUITY OF CARE. PT IS AWAKE , ALERT , BUT POOR HISTORIAN. PT LOUD AND VERY DEMANDING AND CAN BE AGGRESSIVE PER GRAIN FARMER RN. NO IV ACCESS DUE TO PT REFUSING. ON 5150 HOLD, 1:1 SITTER FOR SUICIDAL PRECAUTION PROTOCOL. PLAN OF CARE DISCUSSED WITH PT BUT LESS MOTIVATION AND POOR CONCENTRATION ON THE TOPIC OF DISCUSSION . WILL MONITOR PT CLOSELY.
--- NOTE | 2019-07-18 07:25 | NUR ---
ENDORSED TO AM SHIFT WITH STABLE CONDITION.
[2019-07-18 08:00] VITALS: BP 122/78
--- NOTE | 2019-07-18 08:47 | NUR ---
ADMINISTERED MORNING ZYPREXA. PT TOLERATED WELL. ALL NEEDS MET AT THIS TIME. SITTER 1:1 AT BEDSIDE. WILL CONTINUE TO ROUND FREQUENTLY ON PT.
[2019-07-18] MEDS: OLANZapine 5 MG ODT PO SCH ×2 (09:07→21:08)
--- NOTE | 2019-07-18 10:40 | NUR ---
PT ACTING VERY AGGRESSIVELY. DEMANDING TO BE LET GO BACK HOME. MANAGER FRENCH NOTIFIED. PER HOUSE SUP, CALL MD FOR RESTRAINT ORDER AND ATIVAN ORDER IN CASE NEEDED. 2 SECURITY AND SITTER AT BEDSIDE FOR PATIENT SAFETY. PT WAS IN BATHROOM AND DID NOT WANT TO GET OUT. RN NICOLE AND I DRESSED PT AND GOT HER BACK INTO BED. WILL TRY TO GIVE ATIVAN BEFORE RESTRAINING PT.
[2019-07-18] MEDS ORDERED: LORazepam 2 MG/ML VIAL ONE (10:48)
--- NOTE | 2019-07-18 11:11 | NUR ---
IV ATIVAN GIVEN. PT DID NOT RESIST. SOFT WRIST RESTRAINTS WERE NOT USED. SITTER AT BEDSIDE 1:1 FOR PT SAFETY.
[2019-07-18] MEDS: LORazepam 2 MG/ML VIAL IM/IVP PRN (11:13)
--- NOTE | 2019-07-18 12:30 | NUR ---
LATE ENTRY 5150 HOLD RENEWED AT THIS TIME. I was asked by an attending physician Dr Rosales to evaluate this patient for continuance of 5150 hold, also recommended by Dr Mendez according to his notes from yesterday. Charge nurse [facility] at [facility]. Ro is uncooperative with care, pacing around the room, intermittent bursts of rage with yelling to staff, throwing water jug, exhibiting inappropriate behavior such as standing in bathroom naked, she is unable to answer questions appropriately. Per mother, Ro has a long history of psychiatric disorder, and multiple hospitalizations in lock-up psych facilities. Cierra Lennon #[id number]
--- NOTE | 2019-07-18 13:46 | NUR ---
PT RESTING IN BED. ALL NEEDS MET. WILL CONTINUE TO ROUND FREQUENTLY ON PT. BED IN LOW POSITION, CALL LIGHT WITHIN REACH.
--- NOTE | 2019-07-18 15:27 | NUR ---
PT SLEEPING. ALL NEEDS MET. WILL CONTINUE TO ROUND FREQUENTLY ON PT. BED IN LOW POSITION, CALL LIGHT WITHIN REACH.
[2019-07-18 16:00] VITALS: BP 114/61
--- NOTE | 2019-07-18 17:20 | NUR ---
PT SLEEPING. ALL NEEDS MET.
--- NOTE | 2019-07-18 19:13 | NUR ---
ENDORSED PT TO CULTURED MARBLE PRODUCTS MAKER FOR CONTINUITY OF CARE. PT IN STABLE CONDITION AT THIS TIME.
--- NOTE | 2019-07-18 19:27 | NUR ---
RECEIVED BEDSIDE REPORT FROM DAY SHIFT NURSE. PATIENT IS AWAKE, ALERT, AND RESPIRATION EVEN UNLABORED ON ROOM AIR. SKIN IS WARM AND DRY. DENIES PAIN. SITTER AT BEDSIDE. PLAN OF CARE WAS DISCUSSED. ALL SAFETY MEASURES IN PLACE. BED IS AT LOW POSITION. CALL LIGHT WITHIN REACH. WILL CONTINUE TO MONITOR.
--- NOTE | 2019-07-18 20:00 | NUR ---
PATIENT IS A LITTLE AGITATED. INSTRUCTED HER TO GO TO HER ROOM. REFUSED VITALS. SITTER AT BEDSIDE. WILL CONTINUE TO MONITOR.
--- NOTE | 2019-07-18 21:00 | NUR ---
ALL SCHEDULED MEDS WERE GIVEN PER ORDER. NO ASE NOTED. SITTER AT BEDSIDE. WILL CONTINUE TO MONITOR.
--- NOTE | 2019-07-18 22:20 | NUR ---
Spoke with RN Sophie regarding updated 5150 Hold. Sent intake paperwork with update to Galileo at [facility] for possible placement. Sophie was notified.
--- NOTE | 2019-07-18 22:20 | NUR ---
BELLO FROM [facility] CALLED ASKING IF 5150 HOLD WAS RENEWED AND I SAID YES FAXED 5150 HOLD, STATED THERE IS A FACILITY THAT IS INTERESTED.
--- NOTE | 2019-07-18 22:30 | NUR ---
PATIENT SLEEPING RESPIRATION EVEN UNLABORED ON ROOM AIR. NO DISTRESS NOTED. SITTER AT BEDSIDE. WILL CONTINUE TO MONITOR.
--- NOTE | 2019-07-19 | NUR ---
PATIENT REFUSED VITALS. PATIENT STATED SHE'S SLEEPY AND DON'T WANT TO BE BOTHERED. SITTER AT BEDSIDE. WILL CONTINUE TO MONITOR.
--- NOTE | 2019-07-19 01:45 | NUR ---
CHECKED PATIENT. PATIENT SLEEPING RESPIRATION EVEN UNLABORED ON ROOM AIR. NO DISTRESS NOTED. SITTER AT BEDSIDE. WILL CONTINUE TO MONITOR.
--- NOTE | 2019-07-19 07:16 | NUR ---
ENDORSED PATIENT TO DAY SHIFT NURSE FOR CONTINUITY OF CARE. PATIENT IN STABLE CONDITION
--- NOTE | 2019-07-19 07:30 | NUR ---
Received report from operation shift supervisor nurse. Pt is walking in room. Sitter by bedside.
--- NOTE | 2019-07-19 08:10 | NUR ---
Pt refused vitals signs for 0800. Pt is walking in room. Sitter by bedside.
[2019-07-19] MEDS: OLANZapine 5 MG ODT PO SCH ×2 (09:00→21:24)
--- NOTE | 2019-07-19 09:45 | NUR ---
Pt is agitated and walking in room. Pt says she wants to see the Dr. regarding her condition. Sitter by bedside.
--- NOTE | 2019-07-19 11:10 | NUR ---
Pt is agitated and walking in room. Sitter by bedside.
[2019-07-19] MEDS: LORazepam 2 MG/ML VIAL IM/IVP PRN (14:56)
--- NOTE | 2019-07-19 15:00 | NUR ---
At around 1430 patients mother came to see her. Pt was very agitated and was throwing things around. Called security and after mother left the floor pt was still agitated. Ativan was given. Sitter by bedside.
--- NOTE | 2019-07-19 17:55 | NUR ---
Pt is now resting in bed. No signs of agitation. Pt refused 1600 vitals. Sitter by bedside.
--- NOTE | 2019-07-19 19:37 | NUR ---
Shift report given to night monitor nurse. Pt is resting in bed. Sitter by bedside.
[2019-07-19 20:00] VITALS: BP 112/68
--- NOTE | 2019-07-20 05:42 | NUR ---
Made charge nurse MAURICE NAJERA aware there were no beds available at [facility]
--- NOTE | 2019-07-20 07:15 | NUR ---
RECEIVED REPORT FROM [employer] PROFESSOR NURSE. PT AWAKE, WALKING INSIDE ROOM, SITTER AT BEDSIDE. PT IS ORIENTED X2 TO PERSON AND PLACE, NO C/O PAIN. PER RN KORTNEY, PT REFUSED IV. RESPIRATIONS EVEN AND UNLABORED ON RA. ACTIVE BS, SOFT ABD. SKIN IS INTACT, WARM TO TOUCH. SAFETY MEASURES IN PLACE. REVIEWED POC WITH PT, PT VERBALIZED UNDERSTANDING BUT NEEDS REINFORCEMENT.
[2019-07-20 08:00] VITALS: BP 116/78
--- NOTE | 2019-07-20 08:57 | NUR ---
ATTEMPTED TO ADMINISTER ZYPREXA PER ORDER, EXPLAINED RISKS AND BENEFITS, INDICATIONS AND POTENTIAL SIDE EFFECTS OF MEDICATION. OFFERED 1 MORE TIME, BUT PT STILL REFUSES, STATES "TRY AGAIN IN 1 HOUR". WILL REASSESS AT A LATER TIME.
--- NOTE | 2019-07-20 09:12 | NUR ---
KATELYN contacted the following facilities: Spoke to Ann-Marie from [facility] [phone]. Per Ann-Marie, patient is pending review, although there is no bed availability at this time. Spoke to Barbie from [facility] [phone]. Per Barbie, there is no bed availability at this time. Spoke to Monie from [facility] [phone]. Per Monie, there is no bed availability at this time. KATELYN/SAMMIE will follow up as needed.
--- NOTE | 2019-07-20 09:50 | NUR ---
NOTIFIED AMBER/LINE MAINTENANCE TECHNICIAN THAT PT WOULD LIKE TO RECEIVED UPDATES ON PLACEMENT, PER CM SHE WILL SEE PT AT A LATER TIME.
[2019-07-20] MEDS: OLANZapine 5 MG ODT PO SCH ×2 (09:57→20:26)
--- NOTE | 2019-07-20 09:57 | NUR ---
ATTEMPTED TO ADMINISTER ZYPREXA FOR THE SECOND TIME, EXPLAINED RISKS AND BENEFITS, INDICATIONS AND POTENTIAL SIDE EFFECTS OF MEDICATION. PT STILL REFUSES MEDICATION. PT STATES "I HEAR THEM TALKING", REDIRECTED AND ORIENTED PT THAT ONLY RN AND SITTER IS IN THE ROOM. OFFERED PT ATIVAN, BUT REFUSED. NOTIFIED PT THAT SUPERVISOR TREATING AND PUMPING WILL SEE PT AT A LATER TIME. WILL CONTINUE TO MONITOR AND ASSESS PT'S MOODS.
--- NOTE | 2019-07-20 12:20 | NUR ---
PT SITTING UP IN BED HAVING LUNCH, PT HAS NO DISTRESS AT THIS TIME. SITTER AT BEDSIDE.
--- NOTE | 2019-07-20 13:48 | NUR ---
RECEIVED CALL FROM PT'S MOTHER, GIVEN UPDATE REGARDING PT'S INFORMATION AND INFORMED HER THAT PT SAYS "NO" TO VISITORS TODAY.
--- NOTE | 2019-07-20 13:54 | NUR ---
07/20/19 RD INITIAL ASSESSMENT COMPLETED PLEASE REFER TO NUTRITION ASSESSMENT UNDER CARE ACTIVITY FOR ESTIMATED NUTRITIONAL NEEDS. 1. CONTINUE REGULAR DIET TOLERATED 2. RD TO FOLLOW-UP 5-7 DAYS, LOW RISK MARI OROZCO RD
[2019-07-20 16:00] VITALS: BP 108/80
--- NOTE | 2019-07-20 16:00 | NUR ---
RECEIVED CALL FROM MIRIAN GUPTA TO REVIEW PLACEMENT. AWAITING CALL BACK TO SEE IF PLACEMENT APPROVED.
--- NOTE | 2019-07-20 16:40 | NUR ---
PT'S VSS, RESPIRATIONS EVEN AND UNLABORED ON RA, PT HAS NO C/O PAIN AT THIS TIME. SITTER AT BEDSIDE.
--- NOTE | 2019-07-20 18:05 | NUR ---
RECEIVED CALL FROM [facility]. PER IGOR/INTAKE PETROLOGIST, ACCEPTING PHYSICIAN IS DR. CLAY. PT WILL BE ADMITTED TO ROOM 200. NUMBER TO CALL FOR REPORT IS . NOTIFIED JOHN/CHARGE NURSE TO ARRANGE TRANSPORTATION.
--- NOTE | 2019-07-20 18:35 | NUR ---
PER [facility], BED WILL BE AVAILABLE AFTER 9:30PM. TRANSPORT/PICKUP TIME SCHEDULED AT 9:15 PM.
--- NOTE | 2019-07-20 18:40 | NUR ---
SET UP TRANSPORTATION THRU [facility] ([facility]), SPOKE WITH GEORGINA, ETA WILL BE AT 9:15 HRS TONIGHT. PER GEORGINA, NO NEED TO FAX PCS FORM.
--- NOTE | 2019-07-20 19:15 | NUR ---
ENDORSED PT TO CLOTH EDGE SINGER NURSE. PT IS AWARE THAT SHE WILL BE TRANSFERRED TO [facility]. PT HAS NO SIGNS OF DISTRESS AT THIS TIME.
--- NOTE | 2019-07-20 19:20 | NUR ---
RECEIVED FROM AM RN IN BED AWAKE AND ALERT TALKING TO HERSELF FACING THE CEILING. ABLE TO FOCUS ATTENTION WITH ME WHEN I ASKED HER WHAT SHE WAS DOING. ABLE TO ANSWER SIMPLE QUESTION. ASKED IF SHE WOULD TAKE HER MEDICATION WITH ME AND STATED YES SHE WILL TAKE IT.
--- NOTE | 2019-07-20 20:30 | NUR ---
PT. TOOK HER ZYPREXA 5 MG P.O. WILLINGLY WITH NO RESISTANCE. SITTING ON TOP OF HER BED AT THIS TIME. SITTER IN PLACE. NO COMPLAINTS OF ANY PAIN DONE.
--- NOTE | 2019-07-20 21:19 | NUR ---
PT. PICKED UP BY [facility] TO BE TRANSFERRED TO [facility]. REPORT GIVEN TO RN RECEIVING HER. ALL DISCHARGE PAPER WORKS HANDED TO [employer]. PT. IN GOOD MOOD. ABLE TO ANSWER SIMPLE QUESTIONS. ABLE TO VERBALIZE SIMPLE NEEDS. NO IVF SITE IN PLACE. ALL BELONGINGS ACCOUNTED FOR AND HANDED TO [employer]. PT. SMILING. VITAL SIGNS WITH IN NORMAL VALUES.
== END 2019-07-20 21:20 | DRG 750 ==
LOC: MED 06:49 → MTU 21:38 → OBSVTOIN 22:45
PROVIDERS: ADMIT Internal Medicine Pulmonary Disease; ATTEND Internal Medicine Pulmonary Disease
DX: F25.0 Schizoaffective disorder, bipolar type (principal); R45.851 Suicidal ideations; Z59.0 Homelessness; R46.89 Other symptoms and signs involving appearance and behavior; Z88.8 Allergy status to other drugs, medicaments and biological substances; K21.9 Gastro-esophageal reflux disease without esophagitis; F43.20 Adjustment disorder, unspecified
CPT/HCPCS: 99285; G0378; 36415; 71045; 80053; 80305; 84439; 84443; 84703; 85025; 87081; 93005; J2060; Q0092

== ENCOUNTER 2019-09-12 00:14 | Emergency (ER) | payer OTHER ==
[~2019-09-12] VITALS: Ht 157.5 cm; Wt 71.7 kg
[2019-09-12 00:25] VITALS: BP 118/80
--- NOTE | 2019-09-12 00:28 | NUR ---
TO LOBBY A/W BED AMBULATORY
--- NOTE | 2019-09-12 01:20 | NUR ---
PT AMBULATED TO ER BED 03
--- NOTE | 2019-09-12 01:20 | NUR ---
49 Y/O FEMALE PRESENTS TO ED WITH C/O ABD BLOATING WITH INTERMITTENT SHARP EPIGASTRIC PAIN; C/O HEARING VOICES, VISUAL HALLUCINATIONS, AND DIFFICULTY SLEEPING. ALL C/O >6MONTHS BUT WORSENING. SHE WOULD LIKE RX'S FOR PSYCH MEDS AND EVALUATION OF ABS DISTENTION. VSS. FRIEND AT BEDSIDE. POSITIONED FOR COMFORT. ER MD AWARE. CONTINUE TO MONITOR.
--- NOTE | 2019-09-12 03:02 | NUR ---
PT TAKEN TO XRAY
--- NOTE | 2019-09-12 03:15 | NUR ---
PT RETURNED FROM XRAY
[2019-09-12 04:00] VITALS: BP 111/77
--- NOTE | 2019-09-12 04:00 | NUR ---
PT DISCHARGED WITH PAPERWORK. EDUCATED PT REGARDING MEDICATION AND D/C DIAGNOSIS. PT VERBALIZED UNDERSTANDING. TOLD PT TO FOLLOW UP WITH PCP AND WHEN TO RETURN TO ED. PT AT STABLE CONDITION. ALL QUESTIONS ANSWERED.
== END 2019-09-12 04:00 | disposition home or self-care (01) ==
LOC: MED 00:14
DX: R10.9 Unspecified abdominal pain (principal); G47.00 Insomnia, unspecified; K21.9 Gastro-esophageal reflux disease without esophagitis; Z88.8 Allergy status to other drugs, medicaments and biological substances; F17.200 Nicotine dependence, unspecified, uncomplicated
CPT/HCPCS: 74022; 99283

== ENCOUNTER 2020-03-02 16:02 | Emergency (ER) | payer MEDICAID, OTHER ==
[~2020-03-02] VITALS: Ht 160 cm; Wt 72.6 kg
[2020-03-02 16:15] VITALS: BP 138/80
[2020-03-02] MEDS ORDERED: KETOROLAC 30 MG/ML VIAL IM ONE (16:35)
[2020-03-02] MEDS ORDERED: KETOROLAC 30 MG/ML VIAL ONE (16:40)
[2020-03-02] MEDS ORDERED: IBUPROFEN 600 MG TAB ONE (16:43)
[2020-03-02] MEDS ORDERED: IBUPROFEN 600 MG TAB PO ONE (16:45)
[2020-03-02 16:51] VITALS: BP 138/80
== END 2020-03-02 16:51 | disposition home or self-care (01) ==
LOC: MED 16:02
DX: M79.10 Myalgia, unspecified site (principal); G47.00 Insomnia, unspecified; R03.0 Elevated blood-pressure reading, without diagnosis of hypertension; K21.9 Gastro-esophageal reflux disease without esophagitis; Z88.8 Allergy status to other drugs, medicaments and biological substances
CPT/HCPCS: 99283; J1885

== ENCOUNTER 2020-04-11 08:06 | Emergency (ER) | payer MEDICAID ==
[~2020-04-11] VITALS: Ht 160 cm; Wt 74.8 kg
--- NOTE | 2020-04-11 08:06 | NUR ---
Patient BIBA BLS, triaged and transferred to OF tent. RN evaluating patient.
[2020-04-11 08:14] VITALS: BP 111/74
--- NOTE | 2020-04-11 08:15 | NUR ---
PT C/O NAUSEA, CANKER SORES, AND COUGH. PT STATES "MAYBE 2 WEEKS" PT WENT TO [facility] TO C/O S/S, PT THEN WAS BIBA TO ER. RR EVEN AND UNLABORED. LUNGS CLEAR BILTERALLY. PT NOT ACTIVELY VOMITING. PT HOMELESS. VS STABLE. PT APPEARS TO BE IN NO PAIN OR DISTRESS. PTS DOES NOT ANSWER QUESTIONS STRAIGHTFORWARD. CONTINUES TO GO OFF TOPIC. PMH- DENIES
--- NOTE | 2020-04-11 08:30 | NUR ---
Dr. Faust is evaluating the patient in the overflow tent.
--- NOTE | 2020-04-11 09:15 | NUR ---
PATIENT LEFT WITHOUT VS, DISCHARGE PAPERWORK, OR PSYCHOLOGICAL ANTHROPOLOGIST CONSULT. PT DID NOT SIGN HOMELESS WAIVER. PT GIVEN MEAL.
== END 2020-04-11 09:15 | disposition home or self-care (01) ==
LOC: MED 08:06
DX: R11.0 Nausea (principal); M79.606 Pain in leg, unspecified; H91.90 Unspecified hearing loss, unspecified ear; K21.9 Gastro-esophageal reflux disease without esophagitis; F17.210 Nicotine dependence, cigarettes, uncomplicated; Z88.8 Allergy status to other drugs, medicaments and biological substances; Z59.0 Homelessness
CPT/HCPCS: 99283

== ENCOUNTER 2020-05-22 21:05 | Emergency (ER) | payer MEDICAID ==
[~2020-05-22] VITALS: Ht 160 cm; Wt 71.2 kg
[2020-05-22 21:12] VITALS: BP 152/98
--- NOTE | 2020-05-22 21:21 | NUR ---
PT TAKEN TO BED 4
--- NOTE | 2020-05-22 21:31 | NUR ---
49 Y/O F PRESENTS TO ED C/O BACK PAIN X "YEARS." DENIES TRAUMA, INJURIES TO AFFECTED AREA; NO DEFORMITIES NOTED. PT STATES THAT SHE JUST WANTS SOMEONE TO CHECK HER BACK AND DO A PHYSICAL. PT EXHIBITING EXCESSIVE TALKING, FLIGHT OF IDEAS. PT TALKING TO HERSELF. PER PT, CAME TO ER TO GET PRESCRIBED MEDICATIONS BUT IS UNABLE TO TELL THE NAME OF THE MEDICATIONS. PT DENIES ANY HISTORY BUT IS STATING SHE IS ALLERGIC TO ALL PSYCH MEDICATIONS. VSS. BED LOCKED AND IN LOWEST POSITION, SIDE RAIL UPX1. WILL CONTINUE TO MONITOR. MHX: DENIES ALLERGIES: PT STATES SHE'S ALLERGIC TO ALL PSYCH MEDICATIONS.
--- NOTE | 2020-05-22 21:38 | NUR ---
Dr. Faulkner examining patient.
[2020-05-22 22:04] VITALS: BP 152/98
== END 2020-05-22 21:52 | disposition home or self-care (01) ==
LOC: MED 21:05
DX: G89.29 Other chronic pain (principal); M54.5 Low back pain; K21.9 Gastro-esophageal reflux disease without esophagitis; E07.9 Disorder of thyroid, unspecified; F17.210 Nicotine dependence, cigarettes, uncomplicated; Z88.8 Allergy status to other drugs, medicaments and biological substances
CPT/HCPCS: 99283

== ENCOUNTER 2020-05-30 01:44 | Emergency (ER) | payer MEDICAID ==
[~2020-05-30] VITALS: Ht 160 cm; Wt 74.8 kg
[2020-05-30 01:45] VITALS: BP 129/76
--- NOTE | 2020-05-30 01:45 | NUR ---
PT BIBA TAKEN TO BED #5
--- NOTE | 2020-05-30 01:50 | NUR ---
SEE COMPLETE ASSESSMENT
[2020-05-30] MEDS ORDERED: ONDANSETRON 4 MG ODT ONE (02:09)
[2020-05-30] MEDS ORDERED: ONDANSETRON 4 MG ODT PO ONE (02:10)
[2020-05-30 02:23] LABS: BASOPHILS # (AUTO) 0.1 K/uL (0.00-0.22); BASOPHILS % (AUTO) 0.5 % (0.0-2.0); EOSINOPHILS # (AUTO) 0.3 K/uL (0-0.4); EOSINOPHILS % (AUTO) 2.8 % (0.0-4.0); HEMATOCRIT 39.1 % (36-48); LYMPHOCYTES # (AUTO) 3.8 K/uL (2.5-16.5); LYMPHOCYTES % (AUTO) 36.7 % (20.5-51.1); MEAN CORPUSCULAR HEMOGLOBIN 28 pg (27-31); MEAN CORPUSCULAR HGB CONC 33 g/dL (33-37); MEAN CORPUSCULAR VOLUME 83.9 fL (80-94); MONOCYTES # (AUTO) 0.7 K/uL (0.8-1.0); MONOCYTES % (AUTO) 6.4 % (1.7-9.3); NEUTROPHILS # (AUTO) 5.5 K/uL (1.8-7.7); NEUTROPHILS % (AUTO) 53.6 % (42.2-75.2); PLATELET COUNT (AUTO) 344 K/uL (140-450); RED BLOOD CELL COUNT(AUTO) 4.66 MIL/uL (4.20-5.40); RED CELL DISTRIBUTION WIDTH 14.7 % (11.6-13.7); WHITE BLOOD COUNT (AUTO) 10.3 K/uL (4.8-10.8)
[2020-05-30 02:25] LABS: APPEARANCE,URINE CLEAR (CLEAR); BILIRUBIN,URINE NEGATIVE (NEGATIVE); BLOOD, URINE TRACE-I (NEGATIVE); COLOR,URINE YELLOW (YELLOW); LEUKOCYTE ESTERASE ,URINE NEGATIVE (NEGATIVE); NITRITE, URINE NEGATIVE (NEGATIVE); UGLUCOSE NEGATIVE (NEGATIVE)
[2020-05-30 02:32] LABS: ANION GAP 14.3 (8-16); CARBON DIOXIDE 25.3 mmol/L (21-32); CREATININE 0.7 mg/dL (0.6-1.3); POTASSIUM 3.6 mmol/L (3.5-5.1)
[2020-05-30 02:36] LABS: RBC,URINE 0-5 /HPF (0-5); URINE AMORPHOUS URATE 1+ /HPF (None Seen); WBC,URINE 0-5 /HPF (0-5)
--- NOTE | 2020-05-30 03:39 | NUR ---
Patient discharged with v/s stable. Written and verbal after care instructions given and explained. Patient alert, oriented and verbalized understanding of instructions. Ambulatory with steady gait. All questions addressed prior to discharge. ID band removed. Patient advised to follow up with PMD. Rx of zofran given. Patient educated on indication of medication including possible reaction and side effects. Opportunity to ask questions provided and answered.pt provided with homeless packet
== END 2020-05-30 03:39 | disposition home or self-care (01) ==
LOC: MED 01:44
DX: R11.2 Nausea with vomiting, unspecified (principal); K21.9 Gastro-esophageal reflux disease without esophagitis; E07.9 Disorder of thyroid, unspecified; Z88.8 Allergy status to other drugs, medicaments and biological substances
CPT/HCPCS: 36415; 80048; 81001; 81025; 85025; 99283; Q0162

== ENCOUNTER 2020-05-30 07:33 | Emergency (ER) | payer MEDICAID ==
--- NOTE | 2020-05-30 08:33 | NUR ---
left before triage---pt denied any medical complaints at this time, requesting a bed to sleep. pt had pillow and blanket with her---refused homeless correction form
== END 2020-05-30 08:33 | disposition left against medical advice (07) ==
LOC: MED 07:33
DX: R45.851 Suicidal ideations (principal); Z53.21 Procedure and treatment not carried out due to patient leaving prior to being seen by health care provider

== ENCOUNTER 2020-09-05 15:19 | Emergency (ER) | payer MEDICAID ==
[~2020-09-05] VITALS: Ht 165.1 cm; Wt 77.1 kg
[2020-09-05 15:27] VITALS: BP 130/77
--- NOTE | 2020-09-05 15:40 | NUR ---
ALEXIS FROM [facility], PT STATING SHE IS AND WOULD LIKE AN ULTRASOUND AND IS ALSO HAVING THIGH PAIN. NO PMH
[2020-09-05 16:26] VITALS: BP 130/77
== END 2020-09-05 16:25 | disposition home or self-care (01) ==
LOC: MED 15:19
DX: M79.652 Pain in left thigh (principal); Z04.6 Encounter for general psychiatric examination, requested by authority; K21.9 Gastro-esophageal reflux disease without esophagitis; E07.9 Disorder of thyroid, unspecified; Z88.2 Allergy status to sulfonamides; Z88.8 Allergy status to other drugs, medicaments and biological substances
CPT/HCPCS: 99282

== ENCOUNTER 2020-09-23 09:35 | Emergency (ER) | payer MEDICAID ==
[~2020-09-23] VITALS: Ht 160 cm; Wt 75.7 kg
[2020-09-23 09:45] VITALS: BP 145/79
[2020-09-23 10:53] VITALS: BP 145/79
--- NOTE | 2020-09-23 10:55 | NUR ---
Patient discharged with v/s stable. Written and verbal after care instructions given and explained. Patient verbalized understanding. Ambulatory with steady gait. All questions addressed prior to discharge. Advised to follow up with PMD.
== END 2020-09-23 10:53 | disposition home or self-care (01) ==
LOC: MED 09:35
DX: R56.9 Unspecified convulsions (principal); K21.9 Gastro-esophageal reflux disease without esophagitis; G47.00 Insomnia, unspecified; E07.9 Disorder of thyroid, unspecified; Z76.0 Encounter for issue of repeat prescription; Z88.1 Allergy status to other antibiotic agents; Z88.0 Allergy status to penicillin
CPT/HCPCS: 96372; 99281; 99283

== ENCOUNTER 2021-03-01 10:12 | Emergency (ER) | payer MEDICAID ==
[~2021-03-01] VITALS: Ht 160 cm; Wt 74.8 kg
[2021-03-01 11:03] VITALS: BP 119/87
--- NOTE | 2021-03-01 11:38 | NUR ---
PT AMBULATED TO BED 09
--- NOTE | 2021-03-01 12:03 | NUR ---
Dr. Alonso is evaluating the patient at bedside.
[2021-03-01] MEDS ORDERED: ACETAMINOPHEN EXTRA STRENGTH 500 MG TAB PO ONE (12:10)
[2021-03-01] MEDS ORDERED: ONDANSETRON 4 MG ODT PO ONE (12:10)
--- NOTE | 2021-03-01 12:10 | NUR ---
50/F presents to ED with c/o body discomfort. Patient states her current residence has a bug infestation and she believes she was bitten by something. Patient states she has nausea and foot pain and states "I just dont feel good." No bug chase or rash appear on skin, patient denies taking anything for pain. Denies abdominal pain, nausea or vomiting.
[2021-03-01] MEDS ORDERED: ONDA-24 SL (12:11)
[2021-03-01] MEDS ORDERED: DIPH25TA53 PO (12:11)
[2021-03-01] MEDS ORDERED: IBUP-2213 PO (12:11)
--- NOTE | 2021-03-01 12:24 | NUR ---
Evelyne fitch in ED - 03/01/21 at 1226 by GINO MULTIPLE ATTEMPTS MADE FOR IV ACCESS. PT REFUSING IV AT THIS TIME. DR PALACIOS AWARE AND OFFERED TO ATTEMPT IV ACCESS VIA ULTRASOUND -- PT STILL REFUSED.
[2021-03-01 12:25] VITALS: BP 119/87
--- NOTE | 2021-03-01 12:26 | NUR ---
Patient discharged with v/s stable. Written and verbal after care instructions given and explained. Patient alert, oriented and verbalized understanding of instructions. Ambulatory with steady gait. All questions addressed prior to discharge. ID band removed. Patient advised to follow up with PMD. Rx of benadryl, zofran and Ibuprofen given. Patient educated on indication of medication including possible reaction and side effects. Opportunity to ask questions provided and answered.
== END 2021-03-01 12:25 | disposition home or self-care (01) ==
LOC: MED 10:12
DX: L29.9 Pruritus, unspecified (principal); R11.0 Nausea; M79.10 Myalgia, unspecified site; K21.9 Gastro-esophageal reflux disease without esophagitis; E07.9 Disorder of thyroid, unspecified
CPT/HCPCS: 99284; Q0162; Q0163

== ENCOUNTER 2021-06-06 10:38 | Emergency (ER) | payer MEDICAID ==
[~2021-06-06] VITALS: Ht 160 cm; Wt 77.1 kg
[~2021-06-06 10:38] MED LIST changes: -BISA5ECT2 PO; +DIPH25TA53 PO; -FERR-13 PO; -GABA300C PO; -HYDR25CA1 PO; +IBUP-2213 PO; -LITH8SOL PO; -LORA-476 PO; -MIRABULK PO; -OLAN10TA PO; +ONDA-24 SL
[2021-06-06 10:41] VITALS: BP 134/89
[2021-06-06] MEDS ORDERED: DIPH25TA53 PO (14:13)
[2021-06-06] MEDS ORDERED: IBUP-1842 PO (14:13)
[2021-06-06 14:33] VITALS: BP 128/88
--- NOTE | 2021-06-06 14:33 | NUR ---
no nursing interventions given
--- NOTE | 2021-06-06 14:34 | NUR ---
Patient discharged with v/s stable. Written and verbal after care instructions given and explained. Patient alert, oriented and verbalized understanding of instructions. Ambulatory with steady gait. All questions addressed prior to discharge. ID band removed. Patient advised to follow up with PMD. Rx of benadryl and motrin given. Patient educated on indication of medication including possible reaction and side effects. Opportunity to ask questions provided and answered.
== END 2021-06-06 14:34 | disposition home or self-care (01) ==
LOC: MED 10:38
DX: Z76.0 Encounter for issue of repeat prescription (principal); K21.9 Gastro-esophageal reflux disease without esophagitis; Z86.39 Personal history of other endocrine, nutritional and metabolic disease; F31.9 Bipolar disorder, unspecified; Z79.899 Other long term (current) drug therapy; Z79.1 Long term (current) use of non-steroidal anti-inflammatories (NSAID)
CPT/HCPCS: 99282

== ENCOUNTER 2021-06-21 18:10 | Emergency (ER) | payer MEDICAID ==
[~2021-06-21] VITALS: Ht 160 cm; Wt 79.8 kg
[~2021-06-21 18:10] MED LIST changes: +IBUP-1842 PO
[2021-06-21 18:33] VITALS: BP 126/89
[2021-06-21] MEDS ORDERED: ONDA-24 SL (19:44)
[2021-06-21 19:55] VITALS: BP 126/89
--- NOTE | 2021-06-21 19:55 | NUR ---
no nursing interventions needed
== END 2021-06-21 19:56 | disposition home or self-care (01) ==
LOC: MED 18:10
DX: R11.0 Nausea (principal); K21.9 Gastro-esophageal reflux disease without esophagitis; E07.9 Disorder of thyroid, unspecified; Z79.899 Other long term (current) drug therapy
CPT/HCPCS: 99283